=== PATIENT | female | born 1995 | race Caucasian/White ===

== ENCOUNTER 2018-03-04 12:30 | Outpatient (REF) | payer MEDICAID, SELFPAY | END 2018-03-04 12:50 | LOC: LBN 12:30 | PROVIDERS: PCP Family Medicine; Visit Provider Nurse Practitioner Family | DX: J02.9 Acute pharyngitis, unspecified (principal) | CPT/HCPCS: 87070 ==

== ENCOUNTER 2018-05-06 14:43 | Outpatient (REF) | payer MEDICAID, SELFPAY ==
[2018-05-07 12:28] LABS: Chlamydia Result Negative; GC Result Negative; Specimen Description URINE
== END 2018-05-06 15:03 ==
LOC: LBN 14:43
PROVIDERS: PCP Family Medicine; Visit Provider Nurse Practitioner Women's Health
DX: Z11.3 Encounter for screening for infections with a predominantly sexual mode of transmission (principal)
CPT/HCPCS: 87491; 87591

== ENCOUNTER 2019-12-02 03:48 | Outpatient (CLI) | payer MEDICAID, SELFPAY ==
[2019-12-02 17:08] LABS: Kit/Specimen SENT
[2019-12-02 17:19] LABS: Abs Immature Grans 0.03 10^3/uL (0.0-0.06); Absolute Basophil Count 0.02 10^3/uL (0.0-0.2); Absolute Eosinophil Count 0.02 10^3/uL (0.0-0.7); Absolute Lymphocyte Count 2.51 10^3/uL (1.2-3.4); Absolute Monocyte Count 0.58 10^3/uL (0.1-0.8); Absolute Neutrophil Count 6.47 10^3/uL (1.2-6.7); Basophils % 0.2; Eosinophils % 0.2; HCT 37.1 % (36.0-46.0); HGB 13.2 g/dL (11.2-15.7); Immature Grans % 0.3; Lymphocytes % 26.1; MCHC 35.6 % (32.0-36.0); MPV 10.6 fL (8.0-11.0); Neutrophils % 67.2; Nucleated RBC 0 %; Platelet Count 234 10^3/uL (130-400); RBC 4.12 10^6/uL (3.93-5.22); RDW 11.9 % (11.7-14.6); RDW-SD 38.7 fL; WBC 9.63 10^3/uL (4.4-10.8)
[2019-12-02 17:57] LABS: Tricyclic Antidepressants Negative (Negative)
[2019-12-02 17:58] LABS: *AMPHETAMINES SCREEN URINE Negative (Negative); *BARBITURATES SCREEN URINE Negative (Negative); *BENZODIAZEPINES SCREEN URINE Negative (Negative); Cannabinoids THC Negative (Negative); Cocaine Screen,Urine Negative (Negative); METHADONE URINE SCREEN Negative (Negative); OPIATES URINE SCREEN Negative (Negative)
[2019-12-02 18:09] LABS: TSH (W/Ref FT4) 0.47 uIU/mL (0.36-3.74)
[2019-12-05 10:23] LABS: Hepatitis B Surface Ag Negative (Negative)
[2019-12-05 10:24] LABS: Hepatitis C Ab w Rflx HCV PCR Negative (Negative)
[2019-12-05 10:46] LABS: Rubella IgG Ab (UVM) Positive (See Note); Varicella IgG Antibody Positive (See Note)
[2019-12-05 11:54] LABS: HIV-1/2 Ag & Ab Screen Negative (Negative)
[2019-12-05 14:56] LABS: Chlamydia Result Negative (Negative); GC Result Negative (Negative)
[2019-12-06 11:20] LABS: Syphilis Total Ab w/Reflex Nonreactive (Nonreactive)
[2019-12-10 10:26] LABS: Buprenorphine Negative; Norbuprenorphine Negative
== END 2019-12-02 04:08 ==
PROVIDERS: PCP Family Medicine; Visit Provider Advanced Practice Midwife
DX: Z34.91 Encounter for supervision of normal pregnancy, unspecified, first trimester (principal); Z11.4 Encounter for screening for human immunodeficiency virus [HIV]; Z11.3 Encounter for screening for infections with a predominantly sexual mode of transmission; Z11.59 Encounter for screening for other viral diseases; Z01.84 Encounter for antibody response examination; Z36.89 Encounter for other specified antenatal screening
CPT/HCPCS: 36415; 80307; 86787; 86803; 86850; 86900; 86901; 87340; 87389; 87491; 87591; 84443; 85025; 86762; 86780; 87086

== ENCOUNTER 2019-12-30 15:57 | Outpatient (REF) | payer MEDICAID, SELFPAY | END 2019-12-30 16:17 | LOC: LBN 15:57 | PROVIDERS: PCP Family Medicine; Visit Provider Advanced Practice Midwife | DX: Z34.91 Encounter for supervision of normal pregnancy, unspecified, first trimester (principal) | CPT/HCPCS: 87480; 87510; 87660 ==